=== PATIENT | female | born 1990 | race Caucasian/White ===

== ENCOUNTER 2017-06-24 16:09 | Emergency (ER) | payer SELFPAY ==
[~2017-06-24] VITALS: Ht 165.1 cm; Wt 90.7 kg
[~2017-06-24 16:09] MED LIST: AMOXICILLIN500 M2 PO; AMOXICILLIN500 MG PO; AMOXIL500 MG PO; ATARAX25 MG PO; BACTRIM DS 8001 TA1 PO; CALCIUM1 CAP PO; CIPROFLOXACIN500 MG PO; CITRUS CALCIUM200 MG PO; DEPO IM; EFFEXOR37.5 MG PO; FLOMAX0.4 MG PO; HYDROCODONE BIT1 T11 PO; IBU600 MG PO; IMODIUM2 MG PO; IRON325 M1 PO; KEFLEX500 MG PO; LAMICTAL25 MG PO; MACROBID100 M1 PO; MEDROL DOSEPAK4 MG PO; MOTRIN 800 MG E4 TAB PO; MOTRIN600 MG PO; MOTRIN800 MG PO; NKHM; OMEPRAZOLE20 MG PO; PEPCID20 MG PO; PHENERGAN W/ DE30 ML PO; PRE-NATAL1 TAB PO; PREDNICOT10 MG PO; PREDNISONE20 MG PO; PRENATAL1 TA3 PO; PRENTAL 1 PLUS1 TAB PO; PROAIR HFA0.09 MG/AC INH; PYRIDIUM200 MG PO; TESSALON PERLE200 MG PO; TORADOL10 MG PO; TRAZODONE50 MG PO; ULTRAM 50 MG ED2 TAB PO; ULTRAM50 MG PO; VALTREX1 GM PO; VALTREX500 MG PO; VISTARIL50 MG PO; XANAX0.25 MG PO; ZOFRAN4 MG PO
[2017-06-24] MEDS ORDERED: AMOXICILLIN500 M2 PO (16:33)
== END 2017-06-24 16:41 | disposition home or self-care (01) ==
LOC: ED 16:09
DX: O99.512 Diseases of the respiratory system complicating pregnancy, second trimester (principal); J01.90 Acute sinusitis, unspecified; Z3A.21 21 weeks gestation of pregnancy; Z79.899 Other long term (current) drug therapy

== ENCOUNTER 2019-04-18 12:49 | Emergency (ER) | payer OTHER ==
[~2019-04-18] VITALS: Wt 72.6 kg
[2019-04-18 13:31] LABS: BILIRUBIN NEGATIVE (NEGATIVE); BLOOD NEGATIVE (NEGATIVE); CLARITY CLEAR (CLEAR); COLOR YELLOW (YELLOW); GLUCOSE NEGATIVE (NEGATIVE); KETONE NEGATIVE (NEGATIVE); LEUKO ESTERASE TRACE (NEGATIVE); NITRITE NEGATIVE (NEGATIVE); UROBILINOGEN 0.2 E.U./dl (0.2-1.0)
[2019-04-18 13:37] LABS: BACTERIA 3+; EPITHELIAL CELLS 21-30; MUCOUS TRACE
== END 2019-04-18 15:15 | disposition home or self-care (01) ==
LOC: ED 12:49
PROVIDERS: Nurse Practitioner Family
DX: N91.2 Amenorrhea, unspecified (principal); F17.200 Nicotine dependence, unspecified, uncomplicated; Z88.0 Allergy status to penicillin; Z79.899 Other long term (current) drug therapy; Z79.2 Long term (current) use of antibiotics

== ENCOUNTER 2019-06-27 13:11 | Emergency (ER) | payer MEDICAID ==
[~2019-06-27] VITALS: Ht 165.1 cm; Wt 83.9 kg
[2019-06-27] MEDS ORDERED: DOXYCYCLINE100 M3 PO (14:41)
== END 2019-06-27 14:53 | disposition home or self-care (01) ==
LOC: ED 13:11
DX: J01.90 Acute sinusitis, unspecified (principal); M54.9 Dorsalgia, unspecified; F17.200 Nicotine dependence, unspecified, uncomplicated; Z88.0 Allergy status to penicillin

== ENCOUNTER 2019-09-30 16:45 | Emergency (ER) | payer MEDICAID ==
[~2019-09-30] VITALS: Ht 165.1 cm; Wt 86.2 kg
[~2019-09-30 16:45] MED LIST changes: +DOXYCYCLINE100 M3 PO
[2019-09-30] MEDS ORDERED: DOXYCYCLINE100 M3 PO (19:19)
== END 2019-09-30 19:30 | disposition home or self-care (01) ==
LOC: ED 16:45
DX: J01.90 Acute sinusitis, unspecified (principal); L08.9 Local infection of the skin and subcutaneous tissue, unspecified; Z88.0 Allergy status to penicillin; Z79.899 Other long term (current) drug therapy

== ENCOUNTER 2020-01-03 00:40 | Emergency (ER) | payer MEDICAID ==
[~2020-01-03] VITALS: Ht 165.1 cm; Wt 90.7 kg
== END 2020-01-03 01:54 | disposition home or self-care (01) ==
LOC: ED 00:40
DX: S90.32XA Contusion of left foot, initial encounter (principal); S90.02XA Contusion of left ankle, initial encounter; F41.9 Anxiety disorder, unspecified; F31.9 Bipolar disorder, unspecified; Z88.0 Allergy status to penicillin; Z79.899 Other long term (current) drug therapy; W20.8XXA Other cause of strike by thrown, projected or falling object, initial encounter; Y93.89 Activity, other specified; Y92.89 Other specified places as the place of occurrence of the external cause; Y99.8 Other external cause status

== ENCOUNTER 2020-03-24 18:43 | Emergency (ER) | payer SELFPAY ==
[2020-03-24] MEDS ORDERED: ROBITUSSIN DM 101 OZ PO (19:31)
[2020-03-24] MEDS ORDERED: AVPAK AZITHROM250 MG PO (19:31)
== END 2020-03-24 20:24 | disposition home or self-care (01) ==
LOC: ED 18:43
DX: J01.90 Acute sinusitis, unspecified (principal); Z88.0 Allergy status to penicillin; Z20.828 Contact with and (suspected) exposure to other viral communicable diseases

== ENCOUNTER 2020-06-24 16:55 | Emergency (ER) | payer OTHER ==
[~2020-06-24] VITALS: Ht 165.1 cm; Wt 90.7 kg
[~2020-06-24 16:55] MED LIST changes: +AVPAK AZITHROM250 MG PO; +ROBITUSSIN DM 101 OZ PO
[2020-06-24] MEDS ORDERED: SEPTDS PO (18:28)
[2020-06-24] MEDS ORDERED: FLONASE ALLERG9.9 ML NAS (18:28)
== END 2020-06-24 19:03 | disposition home or self-care (01) ==
LOC: ED 16:55
DX: J32.9 Chronic sinusitis, unspecified (principal); Z20.828 Contact with and (suspected) exposure to other viral communicable diseases

== ENCOUNTER → 2020-10-03 | Outpatient (CLI) | payer OTHER ==
[~2020-10-03] MED LIST changes: +FLONASE ALLERG9.9 ML NAS; +SEPTDS PO
[2020-10-03 14:27] LABS: BASO % 0.3 % (0.0-1.0); EOS # 0.1 10*3/uL (0.0-0.4); EOS % 1.2 % (1.0-4.0); HEMATOCRIT 38.4 % (37.0-47.0); LYMPH # 2.5 10*3/uL (1.3-4.4); MEAN CELL VOLUME 88.9 fl (81.0-99.0); MEAN CORPUSCULAR HGB 28.2 pg (27.0-31.0); MEAN CORPUSCULAR HGB CONC 31.8 g/dl (33.0-37.0); MEAN PLATELET VOLUME 10.8 fl (9.6-12.3); MONO # 0.4 10*3/uL (0.1-1.0); MONO % 6.3 % (3.0-9.0); NEUT % 50.2 % (47.0-73.0); PLATELET COUNT AUTOMATED 178 10*3/uL (130-400); RED BLOOD COUNT 4.32 10*6/uL (4.10-5.10); RED CELL DISTRI WIDTH 12.9 % (0-14.5); RETICULOCYTE % 0.92 % (0.50-2.50)
[2020-10-03 14:29] LABS: BILIRUBIN Negative (Negative); BLOOD Negative (Negative); CLARITY Cloudy (Clear); COLOR Yellow (Yellow); GLUCOSE Negative (Negative); KETONE Negative (Negative); LEUKO ESTERASE 3+ (Negative); NITRITE Negative (Negative); SPECIFIC GRAVITY 1.015 (1.001-1.030); UROBILINOGEN 0.2 E.U./dl (0.0-1.0)
[2020-10-03 14:46] LABS: BACTERIA 1+; EPITHELIAL CELLS 21-30
[2020-10-03 15:00] LABS: ALBUMIN 3.8 gm/dl (3.1-4.5); BUN 9 mg/dl (7-24); CHLORIDE 110 mmol/L (98-107); CHOLESTEROL 156 mg/dL (<200); GAMMA GLUTAMYL TRANSPEPTIDASE 13 U/L (5-55); HDL CHOLESTEROL 53 mg/dl (40-60); IRON 69 ug/dL (50-170); LDL CHOLESTEROL 80 mg/dL (9-159); POTASSIUM 3.7 mmol/L (3.5-5.1); SGOT/AST 15 IU/L (3-35); SGPT/ALT 28 U/L (12-78); SODIUM 141 mmol/L (136-145); THYROXINE (T4) TOTAL 5.7 ug/dl (4.8-13.9); TOTAL PROTEIN 7.6 gm/dL (6.4-8.2); TRIGLYCERIDES 116 mg/dl (<150); URIC ACID 4.5 mg/dL (2.6-6.0); VLDL CHOLESTEROL 23 mg/dL (6-40)
[2020-10-03 15:07] LABS: FERRITIN 45.5 ng/mL (10.0-291.0); VITAMIN D, 25-HYDROXY 17.9 ng/mL (30-100)
[2020-10-03 15:08] LABS: ALKALINE PHOSPHATASE 57 U/L (45-117); T3 UPTAKE 33 % (31-39); TOTAL IRON BINDING CAPACITY 333 ug/dl (250-450)
[2020-10-04 08:08] LABS: RHEUMATOID ARTHRITIS FACTOR <10.0 IU/mL (0.0-13.9)
[2020-10-04 14:08] LABS: ANTI-DSDNA ANTIBODIES 3 IU/mL (0-9)
== END | disposition home or self-care (01) ==
LOC: LAB 13:56
PROVIDERS: ATTEND Family Medicine
DX: E78.5 Hyperlipidemia, unspecified (principal); R53.83 Other fatigue; E55.9 Vitamin D deficiency, unspecified; R06.02 Shortness of breath; R79.89 Other specified abnormal findings of blood chemistry; R74.8 Abnormal levels of other serum enzymes

== ENCOUNTER 2021-02-08 12:13 | Emergency (ER) | payer OTHER ==
[~2021-02-08] VITALS: Ht 165.1 cm; Wt 97.5 kg
[2021-02-08 12:51] LABS: BILIRUBIN Negative (Negative); BLOOD Negative (Negative); CLARITY Cloudy (Clear); COLOR Yellow (Yellow); GLUCOSE Negative (Negative); KETONE Negative (Negative); LEUKO ESTERASE 3+ (Negative); NITRITE Negative (Negative); PH 7.5 (4.5-8.0); SPECIFIC GRAVITY 1.015 (1.001-1.030)
[2021-02-08 12:59] LABS: BASO % 0.2 % (0.0-1.0); EOS # 0.1 10*3/uL (0.0-0.4); EOS % 1.4 % (1.0-4.0); HEMATOCRIT 38.8 % (37.0-47.0); LYMPH # 2.5 10*3/uL (1.3-4.4); LYMPH % 45.8 % (27.0-41.0); MEAN CORPUSCULAR HGB 28.2 pg (27.0-31.0); MEAN CORPUSCULAR HGB CONC 32.7 g/dl (33.0-37.0); MONO # 0.4 10*3/uL (0.1-1.0); MONO % 6.3 % (3.0-9.0); NEUT # 2.6 10*3/uL (2.3-7.9); NEUT % 46.1 % (47.0-73.0); PLATELET COUNT AUTOMATED 184 10*3/uL (130-400); RED BLOOD COUNT 4.51 10*6/uL (4.10-5.10); RED CELL DISTRI WIDTH 13.6 % (0-14.5); WHITE BLOOD COUNT 5.5 10*3/uL (4.8-10.8)
[2021-02-08 13:00] LABS: BACTERIA 4+; EPITHELIAL CELLS 21-30; WBC TNTC wbc/hpf (0-5)
[2021-02-08 13:13] LABS: ALBUMIN 3.8 gm/dl (3.1-4.5); ALKALINE PHOSPHATASE 56 U/L (45-117); BUN 9 mg/dl (7-24); CHLORIDE 111 mmol/L (98-107); CREATININE 0.75 mg/dL (0.55-1.02); POTASSIUM 3.8 mmol/L (3.5-5.1); SGOT/AST 7 IU/L (3-35); SGPT/ALT 23 U/L (12-78); SODIUM 137 mmol/L (136-145); TOTAL PROTEIN 7.7 gm/dL (6.4-8.2)
[2021-02-08 13:16] LABS: B-hCG (QUALITATIVE) NEGATIVE (NEGATIVE)
[2021-02-08] MEDS ORDERED: ZOFRAN4 MG PO (14:46)
[2021-02-08] MEDS ORDERED: CEFUROXIME AXE500 MG PO (14:46)
== END 2021-02-08 14:53 | disposition home or self-care (01) ==
LOC: ED 12:13
PROVIDERS: Physician Assistant
DX: B34.9 Viral infection, unspecified (principal); N39.0 Urinary tract infection, site not specified; Z88.0 Allergy status to penicillin; Z79.899 Other long term (current) drug therapy

== ENCOUNTER → 2021-03-13 | Outpatient (CLI) | payer OTHER ==
[~2021-03-13] MED LIST changes: +CEFUROXIME AXE500 MG PO
== END | disposition home or self-care (01) ==
LOC: US 03-06 09:00
PROVIDERS: ATTEND Family Medicine
DX: R10.84 Generalized abdominal pain (principal); R10.2 Pelvic and perineal pain

== ENCOUNTER 2021-05-14 11:41 | Emergency (ER) | payer OTHER ==
[~2021-05-14] VITALS: Ht 165.1 cm; Wt 95.3 kg
[2021-05-14] MEDS ORDERED: INDOMETHACIN50 MG PO (15:37)
== END 2021-05-14 15:55 | disposition home or self-care (01) ==
LOC: ED 11:41
DX: M25.531 Pain in right wrist (principal); M79.641 Pain in right hand; Z88.0 Allergy status to penicillin; W51.XXXA Accidental striking against or bumped into by another person, initial encounter; Y93.89 Activity, other specified; Y92.89 Other specified places as the place of occurrence of the external cause; Y99.8 Other external cause status

== ENCOUNTER 2021-07-05 21:25 | Emergency (ER) | payer OTHER ==
[~2021-07-05] VITALS: Ht 165.1 cm; Wt 95.3 kg
[~2021-07-05 21:25] MED LIST changes: +INDOMETHACIN50 MG PO
[2021-07-05 22:13] LABS: BASO % 0.2 % (0.0-1.0); EOS # 0.1 10*3/uL (0.0-0.4); EOS % 1.2 % (1.0-4.0); HEMATOCRIT 38.8 % (37.0-47.0); LYMPH % 31.1 % (27.0-41.0); MEAN CELL VOLUME 87.2 fl (81.0-99.0); MEAN CORPUSCULAR HGB 27.9 pg (27.0-31.0); MEAN PLATELET VOLUME 10.7 fl (9.6-12.3); MONO # 0.8 10*3/uL (0.1-1.0); MONO % 8.5 % (3.0-9.0); NEUT # 5.6 10*3/uL (2.3-7.9); NEUT % 58.7 % (47.0-73.0); PLATELET COUNT AUTOMATED 192 10*3/uL (130-400); RED BLOOD COUNT 4.45 10*6/uL (4.10-5.10); RED CELL DISTRI WIDTH 13.1 % (0-14.5); WHITE BLOOD COUNT 9.5 10*3/uL (4.8-10.8)
[2021-07-05 22:28] LABS: ALBUMIN 3.5 gm/dl (3.1-4.5); ALKALINE PHOSPHATASE 67 U/L (45-117); BUN 14 mg/dl (7-24); CHLORIDE 110 mmol/L (98-107); CREATININE 0.79 mg/dL (0.55-1.02); POTASSIUM 3.9 mmol/L (3.5-5.1); SGOT/AST 12 IU/L (3-35); SGPT/ALT 31 U/L (12-78); SODIUM 140 mmol/L (136-145); TOTAL PROTEIN 7.8 gm/dL (6.4-8.2)
[2021-07-05] MEDS ORDERED: PREDNISONE20 M1 PO (23:36)
== END 2021-07-05 23:56 | disposition home or self-care (01) ==
LOC: ED 21:25
PROVIDERS: Internal Medicine
DX: J06.9 Acute upper respiratory infection, unspecified (principal); Z20.822 Contact with and (suspected) exposure to COVID-19; Z88.0 Allergy status to penicillin

== ENCOUNTER 2022-01-30 13:12 | Emergency (ER) | payer OTHER ==
[~2022-01-30] VITALS: Ht 165.1 cm; Wt 102.1 kg
[~2022-01-30 13:12] MED LIST changes: +PREDNISONE20 M1 PO
[2022-01-30] MEDS ORDERED: PREDNISONE10 MG PO (13:37)
== END 2022-01-30 14:52 | disposition home or self-care (01) ==
LOC: ED 13:12
DX: L23.7 Allergic contact dermatitis due to plants, except food (principal)

== ENCOUNTER → 2022-08-16 | Outpatient (CLI) | payer OTHER ==
[~2022-08-16] MED LIST changes: +PREDNISONE10 MG PO
[2022-08-16 10:07] LABS: BILIRUBIN Negative (Negative); BLOOD Negative (Negative); CLARITY Clear (Clear); COLOR Yellow (Yellow); GLUCOSE Negative (Negative); KETONE Trace (Negative); LEUKO ESTERASE 1+ (Negative); NITRITE Negative (Negative); PH 5.5 (4.5-8.0); SPECIFIC GRAVITY 1.025 (1.001-1.030)
[2022-08-16 10:24] LABS: BACTERIA 2+
[2022-08-16 10:25] LABS: MUCOUS 2+; RBC 0-2 rbc/hpf (0-2)
[2022-08-16 10:29] LABS: ALKALINE PHOSPHATASE 65 U/L (46-116); BUN 10 mg/dl (9-23); CHLORIDE 108 mmol/L (98-107); CHOLESTEROL 161 mg/dL (<200); GAMMA GLUTAMYL TRANSPEPTIDASE 18 U/L (0-73); LDL CHOLESTEROL 106 mg/dL (9-159); POTASSIUM 3.5 mmol/L (3.4-5.1); SGPT/ALT 25 U/L (10-49); T3 UPTAKE 27.3 % (22.4-36.7); THYROID STIM HORMONE (HS) 1.567 uIU/ml (0.550-4.780); THYROXINE (T4) TOTAL 7.3 ug/dl (4.5-10.9); TOTAL PROTEIN 7.7 gm/dL (6.0-8.0); TRIGLYCERIDES 72 mg/dl (<150); URIC ACID 5.6 mg/dL (3.1-9.2)
[2022-08-16 10:44] LABS: VITAMIN D, 25-HYDROXY 39.4 ng/mL (30-100)
[2022-08-16 10:45] LABS: BASO % 0.4 % (0.0-1.0); EOS # 0.1 10*3/uL (0.0-0.4); HEMATOCRIT 40.4 % (37.0-47.0); LYMPH # 2.8 10*3/uL (1.3-4.4); LYMPH % 53.8 % (27.0-41.0); MEAN CELL VOLUME 87.6 fl (81.0-99.0); MEAN CORPUSCULAR HGB 28.4 pg (27.0-31.0); MEAN CORPUSCULAR HGB CONC 32.4 g/dl (33.0-37.0); MEAN PLATELET VOLUME 11.1 fl (9.6-12.3); MONO # 0.3 10*3/uL (0.1-1.0); MONO % 6.4 % (3.0-9.0); NEUT % 38.2 % (47.0-73.0); PLATELET COUNT AUTOMATED 181 10*3/uL (130-400); RED BLOOD COUNT 4.61 10*6/uL (4.10-5.10); RED CELL DISTRI WIDTH 13.3 % (0-14.5); RETICULOCYTE % 0.75 % (0.50-2.50); WHITE BLOOD COUNT 5.2 10*3/uL (4.8-10.8)
[2022-08-16 17:14] LABS: B-hCG (QUALITATIVE) NEGATIVE (NEGATIVE)
[2022-08-17 04:06] LABS: DHEA SULFATE 88.1 ug/dL (84.8-378.0); SEX HORMONE BINDING GLOBULIN 30.1 nmol/L (24.6-122.0)
[2022-08-17 22:05] LABS: HUMAN GROWTH HORMONE 0.1 ng/mL (0.0-10.0)
[2022-08-19 12:06] LABS: DEHYDROEPIANDROSTERONE 146 ng/dL (31-701)
[2022-08-19 13:06] LABS: ANTI-DSDNA ANTIBODIES 6 IU/mL (0-9)
== END | disposition home or self-care (01) ==
LOC: LAB 09:27
PROVIDERS: ATTEND Family Medicine
DX: E78.5 Hyperlipidemia, unspecified (principal); E55.9 Vitamin D deficiency, unspecified; R79.89 Other specified abnormal findings of blood chemistry; R53.83 Other fatigue; R74.8 Abnormal levels of other serum enzymes

== ENCOUNTER → 2022-09-19 | Outpatient (CLI) | payer OTHER | END | disposition home or self-care (01) | LOC: US 07:30 | PROVIDERS: ATTEND Family Medicine | DX: K76.0 Fatty (change of) liver, not elsewhere classified (principal) ==

== ENCOUNTER → 2022-09-27 | Outpatient (CLI) | payer OTHER | END | disposition home or self-care (01) | LOC: CT 09:00 | PROVIDERS: ATTEND Family Medicine | DX: N20.0 Calculus of kidney (principal); N26.1 Atrophy of kidney (terminal); R10.84 Generalized abdominal pain; K59.00 Constipation, unspecified ==

== ENCOUNTER → 2022-10-07 | Outpatient (CLI) | payer OTHER | END | disposition home or self-care (01) | LOC: NM 01:07 | PROVIDERS: ATTEND Family Medicine | DX: R10.84 Generalized abdominal pain (principal) ==

== ENCOUNTER 2022-10-17 12:55 | Emergency (ER) | payer OTHER ==
[~2022-10-17] VITALS: Ht 165.1 cm; Wt 97.5 kg
[2022-10-17 13:37] LABS: BASO % 0.2 % (0.0-1.0); EOS # 0.1 10*3/uL (0.0-0.4); EOS % 1.6 % (1.0-4.0); HEMATOCRIT 38.4 % (37.0-47.0); LYMPH # 2.2 10*3/uL (1.3-4.4); MEAN CELL VOLUME 85.7 fl (81.0-99.0); MEAN CORPUSCULAR HGB 28.6 pg (27.0-31.0); MEAN CORPUSCULAR HGB CONC 33.3 g/dl (33.0-37.0); MEAN PLATELET VOLUME 10.3 fl (9.6-12.3); MONO # 0.3 10*3/uL (0.1-1.0); MONO % 6.6 % (3.0-9.0); NEUT # 2.4 10*3/uL (2.3-7.9); NEUT % 47.4 % (47.0-73.0); PLATELET COUNT AUTOMATED 178 10*3/uL (130-400); RED BLOOD COUNT 4.48 10*6/uL (4.10-5.10); RED CELL DISTRI WIDTH 13.3 % (0-14.5)
[2022-10-17 13:50] LABS: ALKALINE PHOSPHATASE 60 U/L (46-116); BUN 11 mg/dl (9-23); CHLORIDE 108 mmol/L (98-107); POTASSIUM 3.6 mmol/L (3.4-5.1); SGPT/ALT 20 U/L (10-49); TOTAL PROTEIN 7.1 gm/dL (6.0-8.0)
[2022-10-17 14:53] LABS: BILIRUBIN Negative (Negative); BLOOD Negative (Negative); CLARITY Clear (Clear); COLOR Yellow (Yellow); GLUCOSE Negative (Negative); KETONE Trace (Negative); LEUKO ESTERASE 1+ (Negative); NITRITE Negative (Negative); PH 5.5 (4.5-8.0); SPECIFIC GRAVITY 1.025 (1.001-1.030); UROBILINOGEN 0.2 E.U./dl (0.0-1.0)
[2022-10-17 15:07] LABS: BACTERIA 2+; MUCOUS 2+
[2022-10-17] MEDS ORDERED: FLOMAX0.4 MG PO (18:09)
== END 2022-10-17 18:25 | disposition home or self-care (01) ==
LOC: ED 12:55
PROVIDERS: Nurse Practitioner Family
DX: N20.0 Calculus of kidney (principal); F41.9 Anxiety disorder, unspecified; F31.9 Bipolar disorder, unspecified; Z87.442 Personal history of urinary calculi; Z88.0 Allergy status to penicillin; Z98.890 Other specified postprocedural states

== ENCOUNTER → 2022-11-21 | Day surgery (SDC) | payer OTHER ==
[~2022-11-21] VITALS: Ht 165.1 cm; Wt 103.4 kg
[~2022-11-21] MED LIST changes: +COLACE100 MG PO; +HYDROCODONE-AC1 EAC1 PO; +ONDANSETRON HYDR4 M1 PO; +PREVACID30 M3 PO; +VITAMIN D350 MCG PO
[2022-11-21 11:00] VITALS: BP 108/63
[2022-11-21 13:11] VITALS: BP 125/69
[2022-11-21 13:16] VITALS: BP 121/64
[2022-11-21 13:31] VITALS: BP 141/84
[2022-11-21 13:47] VITALS: BP 127/76
== END | disposition home or self-care (01) ==
LOC: SDC 11-18 12:30
PROVIDERS: ATTEND Surgery
DX: K82.8 Other specified diseases of gallbladder (principal); K81.1 Chronic cholecystitis; F41.9 Anxiety disorder, unspecified; F31.9 Bipolar disorder, unspecified; F17.210 Nicotine dependence, cigarettes, uncomplicated; E03.9 Hypothyroidism, unspecified; Z88.0 Allergy status to penicillin; Z79.899 Other long term (current) drug therapy

== ENCOUNTER → 2023-01-02 | Emergency (ER) | payer OTHER ==
[~2023-01-02] VITALS: Ht 165.1 cm; Wt 97.5 kg
[~2023-01-02] MED LIST changes: +CLINDAMYCIN HC300 MG PO
== END ==
LOC: ED 14:12
DX: K21.9 Gastro-esophageal reflux disease without esophagitis (principal); K08.89 Other specified disorders of teeth and supporting structures; K02.9 Dental caries, unspecified; F41.9 Anxiety disorder, unspecified; F31.9 Bipolar disorder, unspecified; Z87.442 Personal history of urinary calculi; Z88.0 Allergy status to penicillin

== ENCOUNTER 2023-05-27 21:06 | Emergency (ER) | payer OTHER ==
[~2023-05-27] VITALS: Ht 165.1 cm; Wt 95.3 kg
[2023-05-27] MEDS ORDERED: PREDNISONE50 MG PO (21:59)
== END 2023-05-27 22:28 | disposition home or self-care (01) ==
LOC: ED 21:06
DX: J32.9 Chronic sinusitis, unspecified (principal); J06.9 Acute upper respiratory infection, unspecified; F41.9 Anxiety disorder, unspecified; F31.9 Bipolar disorder, unspecified; Z88.0 Allergy status to penicillin; Z87.442 Personal history of urinary calculi

== ENCOUNTER 2023-07-29 14:24 | Emergency (ER) | payer OTHER ==
[~2023-07-29] VITALS: Ht 165.1 cm; Wt 95.3 kg
[~2023-07-29 14:24] MED LIST changes: +PREDNISONE50 MG PO
[2023-07-29] MEDS ORDERED: ABILIFY2 MG PO (14:45)
[2023-07-29 15:30] LABS: BASO % 0.3 % (0.0-1.0); EOS # 0.1 10*3/uL (0.0-0.4); EOS % 1.1 % (1.0-4.0); HEMATOCRIT 42.3 % (37.0-47.0); LYMPH # 2.9 10*3/uL (1.3-4.4); LYMPH % 47.1 % (27.0-41.0); MEAN CELL VOLUME 88.3 fl (81.0-99.0); MEAN CORPUSCULAR HGB CONC 31.7 g/dl (33.0-37.0); MEAN PLATELET VOLUME 10.7 fl (9.6-12.3); MONO # 0.4 10*3/uL (0.1-1.0); MONO % 6.2 % (3.0-9.0); NEUT # 2.8 10*3/uL (2.3-7.9); PLATELET COUNT AUTOMATED 198 10*3/uL (130-400); RED BLOOD COUNT 4.79 10*6/uL (4.10-5.10); RED CELL DISTRI WIDTH 13.4 % (0-14.5); WHITE BLOOD COUNT 6.1 10*3/uL (4.8-10.8)
[2023-07-29 15:52] LABS: ALKALINE PHOSPHATASE 68 U/L (46-116); BUN 8 mg/dl (9-23); CHLORIDE 107 mmol/L (98-107); LIPASE 37 U/L (12-53); POTASSIUM 4.3 mmol/L (3.4-5.1); SGPT/ALT 22 U/L (5-49); TOTAL PROTEIN 7.6 gm/dL (6.0-8.0)
[2023-07-29 15:55] LABS: ETHYL ALCOHOL < 3.0 mg/dl (<3)
[2023-07-29 15:56] LABS: URINE AMPHETAMINES Negative (1000ng/ml); URINE BARBITURATES Negative (200ng/ml); URINE BENZODIAZEPINES Negative (200ng/ml); URINE CANNABINOIDS (THC) Negative (50ng/ml); URINE COCAINE Negative (300ng/ml); URINE METHADONE Negative (300ng/ml); URINE OPIATES Negative (300ng/ml); URINE PHENCYCLIDINE Negative (25ng/ml)
[2023-07-29 16:03] LABS: BILIRUBIN Negative (Negative); BLOOD Negative (Negative); CLARITY Clear (Clear); COLOR Yellow (Yellow); GLUCOSE Negative (Negative); KETONE Negative (Negative); LEUKO ESTERASE 1+ (Negative); NITRITE Negative (Negative); UROBILINOGEN 0.2 E.U./dl (0.0-1.0)
[2023-07-29 16:15] LABS: BACTERIA 2+
[2023-07-29] MEDS ORDERED: NAPROSYN500 MG PO (18:09)
[2023-07-29] MEDS ORDERED: TIZANIDINE HCL4 MG PO (18:09)
[2023-07-29] MEDS ORDERED: OMNICEF300 MG PO (18:09)
== END 2023-07-29 18:35 | disposition home or self-care (01) ==
LOC: ED 14:24
PROVIDERS: Family Medicine
DX: M62.838 Other muscle spasm (principal); R10.11 Right upper quadrant pain; R10.31 Right lower quadrant pain; F41.9 Anxiety disorder, unspecified; F31.9 Bipolar disorder, unspecified; Z87.442 Personal history of urinary calculi; Z88.0 Allergy status to penicillin; Z87.891 Personal history of nicotine dependence; Z79.899 Other long term (current) drug therapy

== ENCOUNTER → 2024-04-28 | Outpatient (CLI) | payer OTHER ==
[~2024-04-28] MED LIST changes: +ABILIFY2 MG PO; +NAPROSYN500 MG PO; +OMNICEF300 MG PO; +TIZANIDINE HCL4 MG PO
[2024-04-28 11:33] LABS: HEMATOCRIT 38.9 % (37.0-47.0); MEAN CELL VOLUME 86.4 fl (81.0-99.0); MEAN CORPUSCULAR HGB 28.2 pg (27.0-31.0); MEAN CORPUSCULAR HGB CONC 32.6 g/dl (33.0-37.0); MEAN PLATELET VOLUME 11.5 fl (9.6-12.3); PLATELET COUNT AUTOMATED 114 10*3/uL (130-400); RED CELL DISTRI WIDTH 13.2 % (0-14.5); RETICULOCYTE % 0.94 % (0.50-2.50)
[2024-04-28 11:39] LABS: BILIRUBIN Negative (Negative); BLOOD Negative (Negative); CLARITY Cloudy (Clear); COLOR Yellow (Yellow); GLUCOSE Negative (Negative); KETONE Negative (Negative); LEUKO ESTERASE 1+ (Negative); NITRITE Negative (Negative); PH 6.5 (4.5-8.0); UROBILINOGEN 0.2 E.U./dl (0.0-1.0)
[2024-04-28 11:50] LABS: BACTERIA 1+; WBC 21-30 wbc/hpf (0-5)
[2024-04-28 12:03] LABS: TOTAL CELLS COUNTED 100 #CELLS
[2024-04-28 12:04] LABS: PLATELET SUFFICIENCY LOW (NORMAL)
[2024-04-28 12:07] LABS: ALKALINE PHOSPHATASE 75 U/L (46-116); BUN 8 mg/dl (9-23); CHLORIDE 106 mmol/L (98-107); CHOLESTEROL 123 mg/dL (<200); GAMMA GLUTAMYL TRANSPEPTIDASE 30 U/L (0-73); LDL CHOLESTEROL 71 mg/dL (9-159); POTASSIUM 3.1 mmol/L (3.4-5.1); SGPT/ALT 18 U/L (5-49); T3 UPTAKE 30.6 % (22.4-36.7); THYROXINE (T4) TOTAL 6.7 ug/dl (4.5-10.9); TOTAL PROTEIN 7.7 gm/dL (6.0-8.0); TRIGLYCERIDES 82 mg/dl (<150); URIC ACID 6.7 mg/dL (3.1-7.8)
[2024-04-28 12:39] LABS: VITAMIN D, 25-HYDROXY 47.9 ng/mL (30-100)
[2024-04-29 05:07] LABS: TOTAL PROTEIN, SERUM 7.5 g/dL (6.0-8.5)
[2024-04-29 14:09] LABS: ANTI-DSDNA ANTIBODIES 5 IU/mL (0-9)
[2024-04-29 15:08] LABS: A/G RATIO 1.2 (0.7-1.7); ALBUMIN 4.1 g/dL (2.9-4.4); ALPHA-1-GLOBULIN 0.2 g/dL (0.0-0.4); ALPHA-2-GLOBULIN 0.7 g/dL (0.4-1.0); BETA GLOBULIN 0.9 g/dL (0.7-1.3); GAMMA GLOBULIN 1.5 g/dL (0.4-1.8); GLOBULIN, TOTAL 3.4 g/dL (2.2-3.9)
== END | disposition home or self-care (01) ==
LOC: LAB 11:01
PROVIDERS: ATTEND Family Medicine
DX: E78.5 Hyperlipidemia, unspecified (principal); R79.89 Other specified abnormal findings of blood chemistry; R53.83 Other fatigue; E55.9 Vitamin D deficiency, unspecified

== ENCOUNTER → 2024-05-11 | Outpatient (CLI) | payer OTHER | END | disposition home or self-care (01) | LOC: US 08:55 | PROVIDERS: ATTEND Family Medicine | DX: M79.605 Pain in left leg (principal); M79.604 Pain in right leg; Z72.0 Tobacco use; R20.2 Paresthesia of skin; R20.0 Anesthesia of skin ==

== ENCOUNTER 2025-01-04 10:02 | Emergency (ER) | payer OTHER ==
[~2025-01-04] VITALS: Ht 165.1 cm; Wt 95.3 kg
[2025-01-04] MEDS ORDERED: PREDNISONE20 M1 PO (11:09)
[2025-01-04] MEDS ORDERED: methylPREDNISolone sod succ 125 MG VIAL IM ONE (11:10)
[2025-01-04] MEDS ORDERED: Water, Sterile 10 ML VIAL ONE (11:40)
== END 2025-01-04 11:32 | disposition home or self-care (01) ==
LOC: ED 10:02
DX: L23.7 Allergic contact dermatitis due to plants, except food (principal); F31.9 Bipolar disorder, unspecified; F41.9 Anxiety disorder, unspecified; Z79.899 Other long term (current) drug therapy; Z88.0 Allergy status to penicillin

== ENCOUNTER → 2025-06-03 | Outpatient (CLI) | payer OTHER ==
[2025-06-03 09:07] LABS: BILIRUBIN Negative (Negative); BLOOD Trace-Lysed (Negative); CLARITY Clear (Clear); COLOR Yellow (Yellow); KETONE Negative (Negative); LEUKO ESTERASE 2+ (Negative); NITRITE Negative (Negative); PH 5.5 (4.5-8.0); SPECIFIC GRAVITY 1.020 (1.001-1.030); UROBILINOGEN 0.2 E.U./dl (0.0-1.0)
[2025-06-03 09:10] LABS: MEAN CELL VOLUME 88.5 fl (81.0-99.0); MEAN CORPUSCULAR HGB 29.2 pg (27.0-31.0); MEAN PLATELET VOLUME 10.9 fl (9.6-12.3); NUCLEATED RED BLOOD CELL 0.0 % (0.0-0.0); NUCLEATED RED BLOOD CELL 0.0 10*3/uL (0.0-0.0); PLATELET COUNT AUTOMATED 138 10*3/uL (130-400); RED CELL DISTRI WIDTH 13.5 % (0-14.5); RETICULOCYTE % 1.02 % (0.50-2.50)
[2025-06-03 09:47] LABS: MANUAL DIFF REFLEX YES
[2025-06-03 09:55] LABS: BUN 9 mg/dl (9-23); GAMMA GLUTAMYL TRANSFERASE 25 U/L (0-38); LDL CHOLESTEROL 79 mg/dL (9-159); SGPT/ALT 21 U/L (5-49); T3 UPTAKE 34.8 % (22.4-36.7); THYROXINE (T4) TOTAL 5.7 ug/dl (4.5-10.9)
[2025-06-03 09:56] LABS: BACTERIA 4+; EPITHELIAL CELLS 16-20; VITAMIN D, 25-HYDROXY 37.2 ng/mL (30-100); WBC 21-30 wbc/hpf (0-5)
[2025-06-03 10:00] LABS: PLATELET SUFFICIENCY NORMAL (NORMAL)
== END | disposition home or self-care (01) ==
LOC: LAB 08:28
PROVIDERS: ATTEND Family Medicine
DX: M19.041 Primary osteoarthritis, right hand (principal); R79.89 Other specified abnormal findings of blood chemistry; E78.5 Hyperlipidemia, unspecified; E55.9 Vitamin D deficiency, unspecified; R53.83 Other fatigue

== ENCOUNTER 2025-07-25 12:10 | Emergency (ER) | payer OTHER ==
[~2025-07-25] VITALS: Ht 165.1 cm; Wt 97.5 kg
[2025-07-25] MEDS ORDERED: IOHEXOL 300 MG/ML 100 ML VIAL IV ONE (13:05)
[2025-07-25 13:17] LABS: BASO # 0.0 10*3/uL (0.0-0.1); BASO % 0.4 % (0.0-1.0); EOS # 0.1 10*3/uL (0.0-0.4); EOS % 2.0 % (1.0-4.0); MEAN CELL VOLUME 87.0 fl (81.0-99.0); MEAN CORPUSCULAR HGB 28.9 pg (27.0-31.0); MEAN PLATELET VOLUME 10.8 fl (9.6-12.3); MONO # 0.5 10*3/uL (0.1-1.0); MONO % 9.0 % (3.0-9.0); NEUT # 2.7 10*3/uL (2.3-7.9); NEUT % 52.3 % (47.0-73.0); NUCLEATED RED BLOOD CELL 0.0 % (0.0-0.0); NUCLEATED RED BLOOD CELL 0.0 10*3/uL (0.0-0.0); PLATELET COUNT AUTOMATED 135 10*3/uL (130-400); RED CELL DISTRI WIDTH 13.4 % (0-14.5)
[2025-07-25] MEDS ORDERED: IOHEXOL 300 MG/ML 100 ML VIAL ONE (13:30)
[2025-07-25 13:33] LABS: BILIRUBIN Negative (Negative); BLOOD 1+ (Negative); CLARITY Cloudy (Clear); COLOR Yellow (Yellow); KETONE Negative (Negative); LEUKO ESTERASE Trace (Negative); NITRITE Negative (Negative); PH 5.5 (4.5-8.0); SPECIFIC GRAVITY >= 1.030 (1.001-1.030); UROBILINOGEN 0.2 E.U./dl (0.0-1.0)
[2025-07-25 13:38] LABS: BUN 10 mg/dl (9-23); SGPT/ALT 29 U/L (5-49)
[2025-07-25 13:50] LABS: BACTERIA 4+
== END 2025-07-25 14:47 | disposition home or self-care (01) ==
LOC: ED 12:10
PROVIDERS: Student in an Organized Health Care Education/Training Program
DX: R10.32 Left lower quadrant pain (principal); R53.83 Other fatigue; R53.1 Weakness; F41.9 Anxiety disorder, unspecified; F31.9 Bipolar disorder, unspecified; Z87.442 Personal history of urinary calculi; Z88.0 Allergy status to penicillin